=== PATIENT | female | born 1960 | race Caucasian/White ===

== ENCOUNTER 2023-04-24 13:09 | Emergency (ER) | payer OTHER, SELFPAY ==
[2023-04-24 13:24] VITALS: BP 128/78; PULSE 93; RESP 12; TEMP 36.8; O2SAT 98
--- NOTE | 2023-04-24 13:27 | ECG_ITS ---
Measurements Intervals [place] Rate: 87 P: 42 MI: 178 QRS: -2 QRSD: 80 T: 26 QT: 342 QTc: 413 Interpretive Statements SINUS RHYTHM BASELINE ARTIFACT- III NORMAL ECG NO PREVIOUS ECG AVAILABLE FOR COMPARISON Electronically Signed On 04-24-2023 21:14:56 CDT by Juan Miguel D.O.
--- NOTE | 2023-04-24 14:09 | ED.DIZZY ---
HPI - Dizziness General Chief Complaint: Dizziness Stated Complaint: Abdominal Pain/Nausea/ Vomiting/Diarrhea Time Seen by Provider: 04/24/23 14:09 Source: patient and RN notes reviewed Mode of arrival: ambulatory Limitations: no limitations History of Present Illness HPI Narrative: 63-year-old female presented for complaint of feeling dizzy and weak after 3 days of nausea, vomiting, and diarrhea. Vomiting and diarrhea stopped yesterday. She endorses today she has been able to keep couple glasses of fluids down and a few bites of a pot pie. She denies associated abdominal pain, cough, shortness of breath, heart racing, fevers or chills. She endorses she has [address] home and wanted a medication to help nausea. Related Data Home Medications Medication Instructions Recorded Confirmed cholecalciferol (vitamin D3) 50 50 mcg PO DAILY 04/24/23 04/24/23 mcg (2,000 unit) tablet levothyroxine 75 mcg tablet mcg 04/24/23 meloxicam 15 mg tablet mg 04/24/23 omeprazole 20 mg capsule,delayed mg 04/24/23 release Allergies Allergy/AdvReac Type Severity Reaction Status Date / Time No Known Allergies Allergy Verified 04/24/23 13:27 Review of Systems Review of Systems: CONSTITUTIONAL: Denies body aches, fever, chills, or sweats. EYES: Denies visual changes, redness, or discharge. ENT: Denies rhinorrhea, congestion, sore throat, or otalgia. CARDIOVASCULAR: Denies chest pain, palpitations, or edema. RESPIRATORY: Denies cough or dyspnea. GASTROINTESTINAL: Reports nausea today Denies abdominal pain, vomiting, or diarrhea. GENITOURINARY: Denies dysuria or hematuria. SKIN: Denies rash, itching, or wounds. MUSCULOSKELETAL: Denies back pain, joint pain, or myalgia. NEUROLOGIC: denies ORTEGA, numbness, tingling, or weakness, dizziness PSYCH: Denies depression or anxiety. All systems reviewed & are unremarkable except as noted in HPI and below PMFSH Past Medical History Medical History (Updated 04/24/23 @ 15:08 by Daija Devine APRN) No pertinent past medical history Comments At time of signature, I have reviewed and agree with nursing past medical, surgical, social and family history unless otherwise noted. Please see nursing chart for further information. There is no relevant family history pertinent to the presenting complaint Exam Narrative: GENERAL: Well-appearing, well-nourished HEAD: Normocephalic, atraumatic. EYES: PERRLA, EOMI. ENT: Mucous membranes pink and moist. No rhinorrhea. TMs normal bilaterally. NECK: Normal AROM. Supple. No lymphadenopathy. CHEST: No respiratory distress. Clear to auscultation. HEART: Regular rate and rhythm. No murmur appreciated. Normal peripheral pulses. ABDOMEN: Soft, nontender, nondistended, normal active bowel sounds. EXTREMITIES: Normal range of motion. No edema. SKIN: Warm, dry, no rash. Capillary refill normal. Normal skin turgor. NEURO:No focal deficits. Alert and oriented x3. EOMs intact without nystagmus. No facial droop/asymmetry noted bilaterally. Grimace intact. Intact sensation in face. Hearing intact bilaterally. Shoulder shrug intact. Ambulatory exam with a normal based, steady gait. PSYCH: Normal affect. Course Course Emergency Course: Patient is aware of diagnosis, understands and agrees to treatment plan. Anticipatory guidance given. Patient agrees to follow-up as directed and is aware of reasons to seek care at the emergency department. Portions of this record may have been created with voice recognition software Level of Care: Express Care Visit Vital Signs Vital signs: Vital Signs Temperature 98.3 F 04/24/23 13:24 Pulse Rate 93 04/24/23 13:24 Respiratory Rate 12 04/24/23 13:24 Blood Pressure 128/78 04/24/23 13:24 Pulse Oximetry 98 04/24/23 13:24 Oxygen Delivery Room Air 04/24/23 13:24 Temperature 98.3 F 04/24/23 13:24 Pulse Rate 93 04/24/23 13:24 Respiratory Rate 12 04/24/23 13:24 Blood
[2023-04-24] MEDS: ONDANSETRON HCL ODT 4 MG TABLET SUBLINGUAL (14:20)
--- NOTE | 2023-04-24 14:41 | PC.NURSE ---
1440- water given for PO challenge
== END 2023-04-24 15:08 | disposition home or self-care (01) ==
PROVIDERS: Emergency Provider Nurse Practitioner Family
DX: R42 Dizziness and giddiness (principal)
CPT/HCPCS: 93005; 99213; A9270; G0463